=== PATIENT | female | born 2005 | race Hispanic/Latino ===

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

== ENCOUNTER 2023-01-18 20:23 | Emergency (ER) | payer OTHER, MEDICAID, SELFPAY ==
[2023-01-18] VITALS (8 sets, daily range): BP systolic 99–124; BP diastolic 52–69; PULSE 73–97; RESP 16–18; TEMP 37.1–37.3; O2SAT 96–100; BMI 25.7
[2023-01-18 20:55] LABS: Add Manual Diff / Slide Review NO; Basophils Absolute Auto 100 /uL (0-100); Basophils Percent Auto 0.5 % (0-2); Eosinophils Absolute Auto 100 /uL (0-450); Eosinophils Percent Auto 0.7 % (2-4); Hematocrit 36.9 % (36-46); Hemoglobin 12.1 g/dL (12.0-16.0); Lymphocytes Absolute Auto 1500 /uL (1100-4500); Lymphocytes Percent Auto 14.1 % (25-40); Mean Corpuscular HGB Conc 32.7 % (30-36); Mean Corpuscular Hemoglobin 22.6 PG (26-34); Mean Corpuscular Volume 69.1 fL (80-100); Monocytes Absolute Auto 800 /uL (0-900); Monocytes Percent Auto 7.9 % (3-14); Neutrophils Absolute Auto 8200 /uL (1500-7000); Neutrophils Percent Auto 76.8 % (50-75); Platelet Count 453 X10^3/uL (150-400); Red Blood Cell Count 5.34 X10^6/uL (4.0-5.2); Red Cell Distribution Width 19.2 % (11.6-14.8); White Blood Cell Count 10.7 X10^3/uL (4.5-11.0)
[2023-01-18 21:06] LABS: Alanine Aminotransferase 14 IU/L (<35); Albumin 4.9 g/dL (3.5-5.0); Albumin Globulin Ratio 1.2 (1.0-2.8); Alkaline Phosphatase 82 U/L (38-126); Aspartate Aminotransferase 26 IU/L (14-36); BUN Creatinine Ratio 19.4 (6-22); Bilirubin Total 0.5 mg/dL (0.2-1.3); Blood Urea Nitrogen 13 mg/dL (7-17); Calcium 10.1 mg/dL (8.4-10.2); Carbon Dioxide 25 mmol/L (22-32); Chloride 103 mmol/L (98-107); Estimated Glomerular Filt Rate > 60 mL/min (>60); Glucose 99 mg/dL (70-100); HEMOLYSIS < 15 (0-50); Lipase 47 U/L (23-300); Potassium 3.9 mmol/L (3.4-5.1); Sodium 140 mmol/L (137-145); Total Protein 8.9 g/dL (6.3-8.2)
[2023-01-18] MEDS: hydrOXYzine pamoate 25 MG CAPSULE PO ×2 (21:16→22:48)
[2023-01-18] MEDS: SODIUM CHLORIDE 0.9% 1,000 ML 1000 ML IV (21:17)
[2023-01-18] MEDS: ONDANSETRON 4 MG/2 ML INJ IV (21:28)
--- NOTE | 2023-01-18 21:30 | ED_ITS ---
HPI - Nausea/Vomiting/Diarrhea General Chief complaint: Nausea/Vomiting/Diarrhea Stated complaint: NVD, Anxiety Time Seen by Provider: 01/18/23 20:41 Source: patient Mode of arrival: Ambulatory History of Present Illness HPI Narrative: Patient healthy 17-year-old female history of PTSD depression and anxiety presenting today with nausea vomiting ongoing for about a week. She was seen evaluated twice at [facility]. There she did admit to using marijuana daily she was given droperidol in the ED which she did not react well to required Benadryl and Ativan. She was discharged home with Lexapro and Zofran patient reports she was not given any prescriptions. She also quit taking her Lexapro cold turkey about 1 month ago. She denies fever or chills. She is having some epigastric pain. He says that she is really not able to keep anything down he wakes up from sleep and vomits. Patient states that she was unable to picker and packer her medications the pharmacy not open on the weekend Related Data Previous Rx's Medication Instructions Recorded hydroxyzine HCl 25 mg tablet 25 mg PO BID PRN anxiety #20 tabs 01/18/23 Allergies Allergy/AdvReac Type Severity Reaction Status Date / Time cephalexin [CEPHALEXIN] Allergy Unknown Verified 01/18/23 20:36 Patient History Social History Smoking Status: Never smoker Smoking Status: Never smoker alcohol intake frequency: 0-2 drinks per day Substance Use Type: marijuana Exam Initial Vital Signs Initial Vital Signs: Vital Signs Temperature 99.2 F 01/18/23 20:34 Pulse Rate 97 H 01/18/23 20:34 Respiratory Rate 18 01/18/23 20:34 Blood Pressure 124/62 01/18/23 20:34 Pulse Oximetry 96 01/18/23 20:34 Oxygen Delivery Method Room Air 01/18/23 20:34 GENERAL: Alert well-appearing 17-year-old female and in no acute distress. HEENT: Head atraumatic,EOMI, pupils reactive, face symmetric, moist mucous membranes CARDIOVASCULAR: Regular rate and rhythm without murmurs, rubs or gallops. RESPIRATORY: Breath sounds equal bilaterally, no wheezes rales or rhonchi. ABDOMEN: Soft, mild epigastric pain negative Bills sign no distention guarding or rebound EXTREMITIES: Normal range of motion, no clubbing or edema. Neurovascularly intact NEUROLOGICAL: Alert and oriented x4.Normal gait and speech. SKIN: Warm, dry, no laceration, no petechiae, no rashes or lesions. Course Orders Ordered: ED Orders 01/18/23 20:42 Complete Blood Count AUTO DIFF Stat Comprehensive Metabolic Panel Stat Lipase Stat 01/18/23 21:36 US abdomen limited Stat 01/18/23 21:38 Urine Microscopic Stat Discontinued Medications Hydroxyzine Pamoate (Hydroxyzine Pamoate 25 Mg Capsule) 25 mg PO NOW ONE Stop: 01/18/23 21:05 Last Admin: 01/18/23 21:16 Dose: 25 mg Documented By: BETZY Hydroxyzine Pamoate (Hydroxyzine Pamoate 25 Mg Capsule) 25 mg PO NOW ONE Stop: 01/18/23 22:41 Last Admin: 01/18/23 22:48 Dose: 25 mg Documented By: BETZY Sodium Chloride (Normal Saline 0.9%) 1,000 mls @ 1,000 mls/hr IV BOLUS ONE Stop: 01/18/23 22:03 Last Infusion: 01/18/23 22:27 Dose: Infused Documented By: Admin: 01/18/23 21:17 Dose: 1,000 mls/hr Documented By: BETZY Ondansetron HCl (Ondansetron 4 Mg/2 Ml Inj) 4 mg IV NOW PRN PRN Reason: Nausea And Vomiting Last Admin: 01/18/23 21:28 Dose: 4 mg Documented By: HUSSAIN Ondansetron HCl (Ondansetron 4 Mg Odt Prepack) 1 bottle MISC SEEINSTR ONE Stop: 01/18/23 22:41 Last Admin: 01/18/23 22:48 Dose: 1 bottle Documented By: BETZY Vital Signs Vital signs: Vital Signs - 8 hr 01/18/23 20:34 01/18/23 21:09 01/18/23 21:18 Temperature 99.2 F Pulse Rate 97 H 80 Respiratory Rate 18 Blood Pressure 124/62 112/63 Pulse Oximetry 96 98 Oxygen Delivery Method Room Air 01/18/23 21:18 01/18/23 21:30 01/18/23 21:32 Temperature Pulse Rate 86 73 Respiratory Rate Blood Pressure 109/69 Pulse Oximetry 99 98 Oxygen Delivery Method 01/18/23 21:32 01/18/23 22:00 01/18/23 22:00 Temperature Pulse Rate 84 87 Respiratory Rate 16 Blood Pressure 99/52 L Pulse Oximetry 100 100 Oxygen Delivery Method Room Air 01/18/23 22:30 01/18/23 22:30 01/18/23 22:41 Temperature Pulse Rate 75 Respiratory Rate Blood Pressure 106/58 L 108/64 Pulse Oximetry 100 Oxygen Delivery Method 01/18/23 22:41 Temperature 98.8 F Pulse Rate 86 Respiratory Rate 16 Blood Pressure Pulse Oximetry 99 Oxygen Delivery Method Room Air MDM - Nausea/Vomiting/Diarrhea Lab Data 01/18/23 20:42 01/18/23 20:42 Labs: Lab Results 01/18/23 01/18/23 Range/Units 20:42 21:38 WBC 10.7 (4.5-11.0) X10^3/uL RBC 5.34 H (4.0-5.2) X10^6/uL Hgb 12.1 (12.0-16.0) g/dL Hct 36.9 (36-46) % MCV 69.1 L (80-100) fL MCH 22.6 L (26-34) PG MCHC 32.7 (30-36) % RDW 19.2 H (11.6-14.8) % Plt Count 453 H (150-400) X10^3/uL Neut % (Auto) 76.8 H (50-75) % Lymph % (Auto) 14.1 L (25-40) % [place] % (Auto) 7.9 (3-14) % Eos % (Auto) 0.7 L (2-4) % Baso % (Auto) 0.5 (0-2) % Neut # (Auto) 8200 H (8909-5094) /uL Lymph # (Auto) 1500 (6496-9448) /uL [place] # (Auto) 800 (0-900) /uL Eos # (Auto) 100 (0-450) /uL Baso # (Auto) 100 (0-100) /uL RBC Morphology See below Anisocytosis 2+ H Microcytosis 2+ H Sodium 140 (137-145) mmol/L Potassium 3.9 (3.4-5.1) mmol/L Chloride 103 (98-107) mmol/L Carbon Dioxide 25 (22-32) mmol/L BUN 13 (7-17) mg/dL Creatinine 0.67 (0.52-1.04) mg/dL Estimated GFR > 60 (>60) mL/min BUN/Creatinine Ratio 19.4 (6-22) Glucose 99 (70-100) mg/dL Calcium 10.1 (8.4-10.2) mg/dL Total Bilirubin 0.5 (0.2-1.3) mg/dL AST 26 (14-36) IU/L ALT 14 (<35) IU/L Alkaline Phosphatase 82 (38-126) U/L Total Protein 8.9 H (6.3-8.2) g/dL Albumin 4.9 (3.5-5.0) g/dL Globulin 4.0 (1.7-4.1) g/dL Albumin/Globulin Ratio 1.2 (1.0-2.8) Lipase 47 (23-300) U/L Urine RBC 0-1/hpf (0-5/HPF) Urine WBC 0-1/hpf (0-5/HPF) Ur Squamous Epith Cells 1-5 /hpf (0-5/HPF) Urine Bacteria Few (2-10) H (None) Urine Mucus 1+ H (Negative) Ur Culture Indicated? Cult not indicated Point of Care Testing Test Results Negative Urine Dip Bedside Urine Glucose Negative Bedside Urine Bilirubin - Negative Bedside Urine Ketone +++ 80 Urine Specific [place] 1.030 Bedside Urine Occult Blood - Negative Bedside Urine pH 6.0 Bedside Urine Protein +/- 15 Bedside Urine Urobilinogen - Negative Bedside Urine Nitrite - Negative Imaging Data US - abdomen: Radiologist's Impression: PROCEDURE: US ABDOMEN LIMITED INDICATIONS: RUQ PAIN TECHNIQUE: Real-time scanning was performed of the abdominal and retroperitoneal organs, with image documentation. COMPARISON: [facility], US, ABDOMEN LIMITED, 10/02/2016, 21:07. FINDINGS: Liver: Liver is normal in size and homogeneous in echotexture. Gallbladder: Gallbladder is within normal limits. No sonographic Bills's sign. Biliary ducts: Intrahepatic bile ducts are non-dilated. Extrahepatic bile duct caliber measures 3.1 mm. Normal is 6-7 mm or less in diameter, or 10 mm or less post-cholecystectomy. Pancreas: Visualized portions of the pancreas are sonographically normal. IMPRESSION: Unremarkable ultrasound examination of right upper quadrant abdomen. Dictated by: Kin Story M.D. on 01/18/2023 at 22:14 [facility] Narrative Medical decision making narrative: Patient 17-year-old female history of ongoing nausea vomiting for about a week. Having some epigastric pain. Has been to the ED twice already does look like she received some prescriptions but has not picked them up. Blood work has been reviewed overall reassuring she does have some ketones in her urine no evidence of dehydration EDWARD. He does have some microcytic anemia which is mentioned in previous ED reports. Unlikely to be causing her symptoms. May be related to hyperemesis secondary to marijuana use and cyclic vomiting or a gastroenteritis. At this time supportive care she received IV fluids. Overall feeling a lot better. We talked about trying hydroxyzine for her anxiety. Discharge Plan Departure Patient Disposition: Home Clinical Impression: Nausea & vomiting Instructions: Nausea and Vomiting-Adult Activity Restrictions/Additional Instructions: 1) You have been diagnosed with nausea vomiting 2) What to do: Drink frequent but small amounts of fluids. I recommend Gatorade or a Gatorade-like product, as it has small amounts of sugar and salts that improve fluid retention. 3) Take medications as directed Zofran 4 mg every 8 hours if needed for nausea vomiting Hydroxyzine 25 mg every 8 hours if needed for anxiety 4) Follow up with your primary care provider in 2-3 days 5) Return to ER if you should have any new or worsening symptoms such as, unable to hold down fluids despite use of anti-nausea medications and the small volume oral rehydration strategy. Prescriptions: New hydroxyzine HCl 25 mg tablet 25 mg PO BID PRN (Reason: anxiety) Qty: 20 0RF Referrals: Cele Sharpe MD [Primary Care Provider] - Stand Alone Forms: Patient Portal/API
--- NOTE | 2023-01-18 21:36 | DI.US.S_ITS ---
PROCEDURE: US ABDOMEN LIMITED INDICATIONS: RUQ PAIN TECHNIQUE: Real-time scanning was performed of the abdominal and retroperitoneal organs, with image documentation. COMPARISON: [facility], US, ABDOMEN LIMITED, 10/02/2016, 21:07. FINDINGS: Liver: Liver is normal in size and homogeneous in echotexture. Gallbladder: Gallbladder is within normal limits. No sonographic Blils's sign. Biliary ducts: Intrahepatic bile ducts are non-dilated. Extrahepatic bile duct caliber measures 3.1 mm. Normal is 6-7 mm or less in diameter, or 10 mm or less post-cholecystectomy. Pancreas: Visualized portions of the pancreas are sonographically normal. IMPRESSION: Unremarkable ultrasound examination of right upper quadrant abdomen. Dictated by: Kin Story M.D. on 01/18/2023 at 22:14 Approved by: Kin Story M.D. on 01/18/2023 at 22:14
[2023-01-18 21:42] LABS: Anisocytosis 2+; Microcytosis 2+
[2023-01-18 22:10] LABS: Bacteria Urine Few (2-10); Culture Indicated Urine Cult Not Indicated; Mucus Urine 1+ (Negative); RBC Urine 0-1/HPF (0-5/HPF); Squamous Epithelial Cell Urine 1-5 /HPF (0-5/HPF); WBC Urine 0-1/HPF (0-5/HPF)
[2023-01-18] MEDS: ONDANSETRON 4 MG ODT PREPACK 1 BOTTLE MISC (22:48)
== END 2023-01-18 22:50 | disposition home or self-care (01) ==
PROVIDERS: Emergency Provider Emergency Medicine; Family Provider Physician Assistant; PCP Pediatrics
DX: R11.2 Nausea with vomiting, unspecified (principal); R10.11 Right upper quadrant pain
CPT/HCPCS: 36415; 76705; 76830; 80053; 81003; 81015; 81025; 83690; 85025; 96361; 96374; 99284; J2405